=== PATIENT | female | born 1980 | race Two or more races ===

== ENCOUNTER → 2016-11-11 | Outpatient (CLI) | payer MEDICAID | LOC: BRMIMAGING 09:05 | PROVIDERS: ATTEND Family Medicine | DX: R92.8 Other abnormal and inconclusive findings on diagnostic imaging of breast (principal); N64.4 Mastodynia | CPT/HCPCS: 76641-PO ==

== ENCOUNTER → 2017-04-07 | Outpatient (CLI) | payer MEDICAID | LOC: BRMIMAGING 11:05 | PROVIDERS: ATTEND Family Medicine | DX: R10.2 Pelvic and perineal pain (principal); R32 Unspecified urinary incontinence | CPT/HCPCS: 76856-PO ==